=== PATIENT | female | born 1980 | race Caucasian/White ===

== ENCOUNTER 2016-07-02 12:05 | Emergency (ER) | payer OTHER ==
[~2016-07-02] VITALS: Ht 172.7 cm; Wt 99.8 kg
[2016-07-02 12:30] VITALS: BP 130/83
[2016-07-02] MEDS ORDERED: HYDR-971 PO (13:01)
[2016-07-02] MEDS ORDERED: AMOX500C PO (13:01)
--- NOTE | 2016-07-02 13:01 | PHYS DOC ---
Past Medical History Past Medical History: Other Additional Past Medical Histor: adhd Past Surgical History: Other Additional Past Surgical Histo: right facial injury repair Alcohol Use: None Drug Use: None Adult General Chief Complaint Chief Complaint: DENTAL PROBLEM HPI HPI Patient is a 35 year old female presents emergency department stating that she is having right upper dental pain as well as pain on the frontal part of her teeth. Patient denies any fever, chills or any nausea vomiting. She denies any foul taste in the mouth except for which she uses Orajel. Patient states she does not have a dentist. Review of Systems Review of Systems Constitutional: Denies fever or chills [] Eyes: Denies change in visual acuity, redness, or eye pain [] HENT: Denies nasal congestion or sore throat. C/o dental pain to the right upper back area and the lower fontal teeth Respiratory: Denies cough or shortness of breath [] Cardiovascular: No additional information not addressed in HPI [] GI: Denies abdominal pain, nausea, vomiting, bloody stools or diarrhea [] Musculoskeletal: Denies back pain or joint pain [] Integument: Denies rash or skin lesions [] Neurologic: Denies headache, focal weakness or sensory changes [] Allergies Allergies Allergies Coded Allergies Type Severity Reaction Last Updated Verified No Known Drug Allergies 01/19/14 No Physical Exam Physical Exam Constitutional: Well developed, well nourished, no acute distress, non-toxic appearance. [] HENT: Normocephalic, atraumatic, bilateral external ears normal, oropharynx moist, no oral exudates, nose normal. Bilateral tympanic membranes appear to be normal. Area in the frontal lower areas of the teeth appear to be very red with the #25 tooth appears to have recess gumlines. Patient was noted to have #30-32 teeth extracted. Areas around the #1 and number to teeth appear to be missing as well although this area appears to be very red with some white areas noted Eyes: PERRLA, EOMI, conjunctiva normal, no discharge. [] Neck: Normal range of motion, no tenderness, supple, no stridor. [] Cardiovascular:Heart rate regular rhythm, no murmur [] Lungs & Thorax: Bilateral breath sounds clear to auscultation [] Skin: Warm, dry, no erythema, no rash. [] Back: No tenderness Extremities: No tenderness, no cyanosis, no clubbing, ROM intact, no edema. [] Neurologic: Alert and oriented X 3, normal motor function, normal sensory function, no focal deficits noted. [] Psychologic: Affect normal, judgement normal, mood normal. [] Current Patient Data Vital Signs Vital Signs Date Time Temp Pulse Resp B/P Pulse Ox O2 Delivery O2 Flow Rate FiO2 07/02/16 12:30 98.2 82 18 95 Room Air 98.2 EKG EKG [] Radiology/Procedures Radiology/Procedures [] Course & Med Decision Making Course & Med Decision Making Pertinent Labs and Imaging studies reviewed. (See chart for details) Patient will be placed on amoxicillin. She'll also be provided with hydrocodone in which she was instructed will cause drowsiness do not take any be alert and oriented. Patient agrees with discharge instructions, treatment regimens and follow-up recommendations. She was provided with a dental list to help with follow-up. Also recommended for her to take ibuprofen 800 mg every 8 hours to help with inflammation. Patient will be discharged home in stable condition signs and symptoms to return back to emergency department has been provided. [] Dragon Disclaimer Dragon Disclaimer This electronic medical record was generated, in whole or in part, using a voice recognition dictation system. Departure Departure Impression: Primary Impression: Dental abscess Additional Impression: Pain, dental Disposition: 01 HOME, SELF-CARE Condition: STABLE Referrals: NO PCP (PCP) Patient Instructions: Dental Abscess, Dental Pain Additional Instructions: Activity as tolerated. Medication as prescribed. Hydrocodone will cause drowsiness do not take any be alert and oriented. Ibuprofen 800 mg every 8 hours. Warm salt water mouth rinses 4 times a day. Follow-up with the dentist within the next week. Return back to emergency department sent symptoms of become worse. Scripts Hydrocodone/Apap 5-325 ([place] 5-325 Tablet)1 Each Tablet1 Tab PO PRN Q6HRS PRN PAIN #10 TAB Prov:BLANKA ANDERS LARDER COOK 07/02/16 Amoxicillin 500 Mg Capsule1 Cap PO QID #40 CAP Prov:BLANKA ANDERS LARDER COOK 07/02/16 Problem Qualifiers BLANKA ANDERS NP Jul 02, 2016 13:01
[2016-07-02] MEDS ORDERED: HYDROCODONE/APAP 5/325MG TABLET. PO ONE (13:15)
== END 2016-07-02 13:17 | disposition home or self-care (01) ==
LOC: ER 12:09
DX: K04.7 Periapical abscess without sinus (principal); K08.89 Other specified disorders of teeth and supporting structures
CPT/HCPCS: 99283

== ENCOUNTER 2017-08-09 05:49 | Emergency (ER) | payer OTHER ==
[2017-08-09 06:10] LABS: URINE HCG POC HCG NEGATIVE (Negative)
[2017-08-09 06:22] LABS: ADD MAN DIFF? NO
[2017-08-09] MEDS: IV NORMAL SALINE 1000ML BAG 1,000 ML IV (06:27)
[2017-08-09] MEDS: fentaNYL PF VIAL 100 MCG/2 ML VIAL IV (06:28)
[2017-08-09] MEDS: ONDANSETRON PF 4 MG/2 ML VIAL. IV (06:29)
[2017-08-09] MEDS: LIDO:MAALOX:DONNATAL 1:1:1 15 ML SINGLE DOSE SWSW (06:30)
[2017-08-09] MEDS: KETOROLAC 30 MG/ML INJ. IV (06:30)
[2017-08-09 06:31] LABS: BASO % 0 % (0-3); EOS # 0.2 x10^3/uL (0.0-0.7); EOS % 1 % (0-3); HEMATOCRIT 42.9 % (36.0-47.0); HEMOGLOBIN 14.7 g/dL (12.0-15.5); LYMPH # 1.7 x10^3/uL (1.0-4.8); LYMPH % 15 % (24-48); MEAN CORPUSCULAR HEMOGLOBIN 31 pg (25-35); MEAN CORPUSCULAR HGB CONC 34 g/dL (31-37); MEAN CORPUSCULAR VOLUME 91 fL (79-100); MONO # 0.4 x10^3/uL (0.0-1.1); MONO % 4 % (0-9); NEUT # 9.3 x10^3uL (1.8-7.7); NEUT % 80 % (31-73); PLATELET COUNT 273 x10^3/uL (140-400); RED BLOOD COUNT 4.73 x10^6/uL (3.50-5.40); RED CELL DISTRIBUTION WIDTH 12.8 % (11.5-14.5); WHITE BLOOD COUNT 11.6 x10^3/uL (4.0-11.0)
[2017-08-09 06:46] LABS: BILIRUBIN,URINE NEGATIVE (NEG); CLARITY,URINE CLOUDY; COLOR,URINE YELLOW; GLUCOSE,URINE NEGATIVE (NEG); NITRITE,URINE NEGATIVE (NEG); PROTEIN,URINE NEGATIVE (NEG-TRACE); UROBILINOGEN,URINE 0.2 mg/dL (0.2 mg/dL)
[2017-08-09 07:03] LABS: ANION GAP 8 (6-14); BLOOD UREA NITROGEN 12 mg/dL (7-20); BUN/CREATININE RATIO 13 (6-20); CALCIUM 9.2 mg/dL (8.5-10.1); CARBON DIOXIDE 23 mmol/L (21-32); CHLORIDE 105 mmol/L (98-107); CREATININE 0.9 mg/dL (0.6-1.0); GFR 71.7; GLUCOSE 115 mg/dL (70-99); POTASSIUM 3.9 mmol/L (3.5-5.1); SODIUM 136 mmol/L (136-145)
[2017-08-09 07:07] LABS: BACTERIA,URINE MANY /HPF (0-FEW); RBC,URINE 0 /HPF (0-2); SQUAMOUS EPITHELIAL CELL,UR MANY /LPF; YEAST,URINE PRESENT /HPF
[2017-08-09 07:11] LABS: ALBUMIN 3.5 g/dL (3.4-5.0); ALBUMIN/GLOBULIN RATIO 0.9 (1.0-1.7); ALK PHOS 51 U/L (46-116); ALT (SGPT) 27 U/L (14-59); AST (SGOT) 16 U/L (15-37); LIPASE 120 U/L (73-393); TOTAL BILIRUBIN 0.5 mg/dL (0.2-1.0); TOTAL PROTEIN 7.2 g/dL (6.4-8.2)
[2017-08-09] MEDS: HYDROcodone/APAP 5/325MG 1 TAB TABLET PO (08:15)
[2017-08-09] MEDS: FAMOTIDINE 20 MG TABLET. PO (08:25)
== END 2017-08-09 08:43 | disposition home or self-care (01) ==
LOC: ER 05:49
DX: R10.12 Left upper quadrant pain (principal); D72.829 Elevated white blood cell count, unspecified; R00.1 Bradycardia, unspecified; R11.2 Nausea with vomiting, unspecified; F90.9 Attention-deficit hyperactivity disorder, unspecified type
CPT/HCPCS: 36415; 74176; 80053; 81001; 81025; 83690; 83735; 85025; 87086; 93005; 96361; 96374; 96375; 99285-25; J1885; J2405; J3010; J7030

== ENCOUNTER 2018-09-13 11:49 | Emergency (ER) | payer SELFPAY ==
[~2018-09-13] VITALS: Ht 172.7 cm; Wt 99.8 kg
[~2018-09-13 11:49] MED LIST: AMOX500C PO; HYDR-3164 PO; OMEP20TA63 PO; ONDA4TAB10 PO
[2018-09-13 12:22] LABS: BASO % 0 % (0-3); EOS # 0.1 x10^3/uL (0.0-0.7); EOS % 1 % (0-3); HEMATOCRIT 41.3 % (36.0-47.0); HEMOGLOBIN 13.7 g/dL (12.0-15.5); LYMPH # 1.8 x10^3/uL (1.0-4.8); LYMPH % 20 % (24-48); MEAN CORPUSCULAR HEMOGLOBIN 30 pg (25-35); MEAN CORPUSCULAR HGB CONC 33 g/dL (31-37); MEAN CORPUSCULAR VOLUME 91 fL (79-100); MONO # 0.3 x10^3/uL (0.0-1.1); MONO % 4 % (0-9); NEUT # 7.1 x10^3uL (1.8-7.7); NEUT % 76 % (31-73); PLATELET COUNT 244 x10^3/uL (140-400); RED BLOOD COUNT 4.52 x10^6/uL (3.50-5.40); RED CELL DISTRIBUTION WIDTH 13.5 % (11.5-14.5); WHITE BLOOD COUNT 9.4 x10^3/uL (4.0-11.0)
--- NOTE | 2018-09-13 12:24 | PHYS DOC ---
Past Medical History Past Medical History: Other Additional Past Medical Histor: adhd Past Surgical History: Tonsillectomy Additional Past Surgical Histo: right facial injury repair Alcohol Use: Occasionally Drug Use: None Adult General HPI HPI Patient is a 37 year old female presents to the ED complaining of right-sided chest pain and cough since last night. States she has been coughing on and off over the last week. Describes the pain as sharp. Rates the pain as 8 out of 10. States it is constant. Nothing makes it better or worse. Patient also states about 16 hours ago she started to develop some stuttering. Complains of pain to right sided chest. She has no past medical history significant to her symptoms today. Patients stuttering is broken and sometimes she speaks in full sentences when distracted. Associated symptoms include subjective fever and sore throat. No difficulty walking. Denies altered mental status, shortness of breath, lower leg swelling, dizziness, nausea/vomiting, abdominal pain, back pain, diarrhea, recent illness. Review of Systems Review of Systems Constitutional:Complains of subjective fever. Denies chills [] Eyes: Denies change in visual acuity, redness, or eye pain [] HENT: Complains of sore throat. Denies nasal congestion.[] Respiratory: Complains of cough. Denies shortness of breath [] Cardiovascular: No additional information not addressed in HPI [] GI: Denies abdominal pain, nausea, vomiting, bloody stools or diarrhea [] : Denies dysuria or hematuria [] Musculoskeletal: Denies back pain or joint pain [] Integument: Denies rash or skin lesions [] Neurologic: Complains of stuttering. Denies headache, focal weakness or sensory changes [] All other systems were reviewed and found to be within normal limits, except as documented in this note. Allergies Allergies Allergies Coded Allergies Type Severity Reaction Last Updated Verified No Known Drug Allergies 01/19/14 No Physical Exam Physical Exam Constitutional: Well developed, well nourished, no acute distress, non-toxic appearance. [] HENT: Normocephalic, atraumatic, bilateral external ears normal, oropharynx moist, no oral exudates, nose normal. [] Eyes: PERRLA, EOMI, conjunctiva normal, no discharge. [] Neck: Normal range of motion, no tenderness, supple, no stridor. [] Cardiovascular:Heart rate regular rhythm, no murmur [] Lungs & Thorax: Bilateral breath sounds clear to auscultation. Productive cough. [] Abdomen: Bowel sounds normal, soft, no tenderness, no masses, no pulsatile masses. [] Skin: Warm, dry, no erythema, no rash. [] Back: No tenderness, no CVA tenderness. [] Extremities: No tenderness, no cyanosis, no clubbing, ROM intact, no edema. [] Neurologic: Alert and oriented X 3, normal motor function, normal sensory function, no focal deficits noted. DTR's intact. Normal speech. Psychologic: Affect normal, judgement normal, mood normal. [] Current Patient Data Vital Signs Vital Signs Date Time Temp Pulse Resp B/P (MAP) Pulse Ox O2 Delivery O2 Flow Rate FiO2 09/13/18 13:00 68 119/61 (80) 98 Room Air 09/13/18 11:49 97.8 23 97.8 Lab Values Laboratory Tests Test 09/13/18 11:55 09/13/18 12:45 White Blood Count 9.4 x10^3/uL (4.0-11.0) Red Blood Count 4.52 x10^6/uL (3.50-5.40) Hemoglobin 13.7 g/dL (12.0-15.5) Hematocrit 41.3 % (36.0-47.0) Mean Corpuscular Volume 91 fL (79-100) Mean Corpuscular Hemoglobin 30 pg (25-35) Mean Corpuscular Hemoglobin Concent 33 g/dL (31-37) Red Cell Distribution Width 13.5 % (11.5-14.5) Platelet Count 244 x10^3/uL (140-400) Neutrophils (%) (Auto) 76 % (31-73) H Lymphocytes (%) (Auto) 20 % (24-48) L Monocytes (%) (Auto) 4 % (0-9) Eosinophils (%) (Auto) 1 % (0-3) Basophils (%) (Auto) 0 % (0-3) Neutrophils # (Auto) 7.1 x10^3uL (1.8-7.7) Lymphocytes # (Auto) 1.8 x10^3/uL (1.0-4.8) Monocytes # (Auto) 0.3 x10^3/uL (0.0-1.1) Eosinophils # (Auto) 0.1 x10^3/uL (0.0-0.7) Basophils # (Auto) 0.0 x10^3/uL (0.0-0.2) D-Dimer (Tanika) 0.40 ug/mlFEU (0.00-0.50) Sodium Level 143 mmol/L (136-145) Potassium Level 3.7 mmol/L (3.5-5.1) Chloride Level 106 mmol/L (98-107) Carbon Dioxide Level 28 mmol/L (21-32) Anion Gap 9 (6-14) Blood Urea Nitrogen 10 mg/dL (7-20) Creatinine 0.8 mg/dL (0.6-1.0) Estimated GFR (Cockcroft-Gault) 81.6 BUN/Creatinine Ratio 13 (6-20) Glucose Level 128 mg/dL (70-99) H Calcium Level 8.6 mg/dL (8.5-10.1) Magnesium Level 2.0 mg/dL (1.8-2.4) Total Bilirubin 0.6 mg/dL (0.2-1.0) Aspartate Amino Transferase (AST) 12 U/L (15-37) L Alanine Aminotransferase (ALT) 20 U/L (14-59) Alkaline Phosphatase 46 U/L (46-116) Troponin I Quantitative < 0.017 ng/mL (0.000-0.055) Total Protein 6.8 g/dL (6.4-8.2) Albumin 3.5 g/dL (3.4-5.0) Albumin/Globulin Ratio 1.1 (1.0-1.7) Ethyl Alcohol Level < 10 mg/dL (0-10) Urine Collection Type Void Urine Color Yellow Urine Clarity Clear Urine pH 5.5 Urine Specific [place] 1.010 Urine Protein Negative mg/dL (NEG-TRACE) Urine Glucose (UA) Negative mg/dL (NEG) Urine Ketones (Stick) Negative mg/dL (NEG) Urine Blood Moderate (NEG) Urine Nitrite Negative (NEG) Urine Bilirubin Negative (NEG) Urine Urobilinogen Dipstick 0.2 mg/dL (0.2 mg/dL) Urine Leukocyte Esterase Moderate (NEG) Urine RBC 1-2 /HPF (0-2) Urine WBC 11-20 /HPF (0-4) Urine Squamous Epithelial Cells Mod /LPF Urine Bacteria Moderate /HPF (0-FEW) Urine Mucus Mod /LPF POC Urine HCG, Qualitative Hcg negative (Negative) Urine Opiates Screen Neg (NEG) Urine Methadone Screen Neg (NEG) Urine Barbiturates Neg (NEG) Urine Phencyclidine Screen Neg (NEG) Urine Amphetamine/Methamphetamine Neg (NEG) Urine Benzodiazepines Screen Neg (NEG) Urine Cocaine Screen Neg (NEG) Urine Cannabinoids Screen Pos (NEG) Urine Ethyl Alcohol Neg (NEG) Laboratory Tests 09/13/18 11:55 Laboratory Tests 09/13/18 11:55 EKG EKG EKG shows NSR at 66 BPM. No Stemi.[] Radiology/Procedures Radiology/Procedures []PROCEDURE: CT HEAD WO CONTRAST CT HEAD WO CONTRAST History: Slurred speech for 16 hours, previous fall, dizziness Comparison: None. Technique: Noncontrast CT imaging was performed of the head. Exposure: One or more of the following individualized dose reduction techniques were utilized for this examination: 1. Automated exposure control 2. Adjustment of the mA and/or kV according to patient size 3. Use of iterative reconstruction technique. Findings: No acute extra-axial or parenchymal hemorrhage is identified. There is no significant intra-axial mass effect, midline shift, or extra-axial fluid collection. The wallace-white differentiation of the major vascular territories is preserved. The ventricles, sulci, and cisterns are within normal limits in size and configuration. The mastoid air cells and the visualized paranasal sinuses are aerated. No acute calvarial abnormality is identified. Impression: 1. No acute intracranial abnormality is identified. PROCEDURE: PORTABLE CHEST 1V PORTABLE CHEST 1V History: RIGHT SIDED CHEST PAIN Comparison: August 10, 2004 Findings: Single view of the chest is submitted. There is mild hazy opacity of the medial right base although the right hemidiaphragm and right heart border still visualized. There is no dependent pleural fluid or pneumothorax. Heart size is within normal limits given technique. Impression: 1. There is some hazy medial right base opacity, mild infiltrate or atelectasis difficult to exclude. Course & Med Decision Making Course & Med Decision Making Pertinent Labs and Imaging studies reviewed. (See chart for details) Discussed case with attending physician. Agrees with evaluation and plan. []Reviewed labs and imaging findings with patient. Patients imaging shows hazy opacity right lung which could be causing her right sided chest pain symptoms as well as productive cough. Negative d-dimer and negative troponin. UA seems contaminated. Patient has no cardiac risk factors. CT head imaging normal. Patient had mild stutter on initial exam which seems like patient is doing herself. Patient was able to ambulate to bed by herself. Patient speaking in full sentences to family at bedside. Discussed symptomatic treatment, hydration and [id number] medications. Will prescribe zpak outpatient. Discussed follow-up with PCP tomorrow. Provided contact information/education. Discussed reasons to return to the ED. Patient understands and agrees with plan. Dragon Disclaimer Dragon Disclaimer This electronic medical record was generated, in whole or in part, using a voice recognition dictation system. Departure Departure Impression: Primary Impression: Lung infiltrate Additional Impression: Idiopathic stuttering Disposition: 01 HOME, SELF-CARE Condition: IMPROVED Referrals: NO PCP (PCP) CARLYLE SIMS MD Patient Instructions: Pneumonia, Adult Scripts Azithromycin (AZITHROMYCIN PACKET) 1 Gm Packet 1 PACKET PO ONCE, #1 PACKET Prov: TAD MILLIGAN 09/13/18 Problem Qualifiers TAD MILLIGAN Sep 13, 2018 12:23
[2018-09-13 12:37] LABS: CALCIUM 8.6 mg/dL (8.5-10.1); CREATININE 0.8 mg/dL (0.6-1.0); GFR 81.6; POTASSIUM 3.7 mmol/L (3.5-5.1)
[2018-09-13 12:45] LABS: ALBUMIN 3.5 g/dL (3.4-5.0); ALBUMIN/GLOBULIN RATIO 1.1 (1.0-1.7); TOTAL BILIRUBIN 0.6 mg/dL (0.2-1.0); TOTAL PROTEIN 6.8 g/dL (6.4-8.2)
--- NOTE | 2018-09-13 12:48 | RAD ---
PORTABLE CHEST 1V History: RIGHT SIDED CHEST PAIN Comparison: August 10, 2004 Findings: Single view of the chest is submitted. There is mild hazy opacity of the medial right base although the right hemidiaphragm and right heart border still visualized. There is no dependent pleural fluid or pneumothorax. Heart size is within normal limits given technique. Impression: 1. There is some hazy medial right base opacity, mild infiltrate or atelectasis difficult to exclude. Electronically signed by: Naveen Mcclure MD (09/13/2018 12:46 PM) [place] [id number]
[2018-09-13 12:58] LABS: BILIRUBIN,URINE NEGATIVE (NEG); CLARITY,URINE CLEAR; COLOR,URINE YELLOW; NITRITE,URINE NEGATIVE (NEG); PH,URINE 5.5; PROTEIN,URINE NEGATIVE (NEG-TRACE); UROBILINOGEN,URINE 0.2 mg/dL (0.2 mg/dL)
[2018-09-13 13:00] VITALS: BP 119/61
[2018-09-13 13:03] LABS: BACTERIA,URINE MODERATE /HPF (0-FEW); SQUAMOUS EPITHELIAL CELL,UR MOD /LPF
[2018-09-13 13:05] LABS: BARBITURATES NEG (NEG); BENZODIAZEPINES NEG (NEG); CANNABINOIDS POS (NEG); COCAINE NEG (NEG); METHADONE NEG (NEG); OPIATES NEG (NEG); PHENCYCLIDINE NEG (NEG)
[2018-09-13 13:08] LABS: AMPHETAMINE/METHAMPHETAMINE NEG (NEG)
--- NOTE | 2018-09-13 13:25 | RAD ---
CT HEAD WO CONTRAST History: Slurred speech for 16 hours, previous fall, dizziness Comparison: None. Technique: Noncontrast CT imaging was performed of the head. Exposure: One or more of the following individualized dose reduction techniques were utilized for this examination: 1. Automated exposure control 2. Adjustment of the mA and/or kV according to patient size 3. Use of iterative reconstruction technique. Findings: No acute extra-axial or parenchymal hemorrhage is identified. There is no significant intra-axial mass effect, midline shift, or extra-axial fluid collection. The wallace-white differentiation of the major vascular territories is preserved. The ventricles, sulci, and cisterns are within normal limits in size and configuration. The mastoid air cells and the visualized paranasal sinuses are aerated. No acute calvarial abnormality is identified. Impression: 1. No acute intracranial abnormality is identified. Electronically signed by: Naveen Mcclure MD (09/13/2018 1:22 PM) [email or web address]
[2018-09-13] MEDS ORDERED: AZIT1PAC9 PO (14:16)
--- NOTE | 2018-09-13 14:40 | EKG ---
[facility] [address] [place] [address] Test Date: 2018-09-13 Test Time: 12:18:01 Pat Name: POPEYE LEIGH Department: Room: Gender: F [employer]er: [place] : 1980 Requested By: TAD MILLIGAN Order Number: [id number] Reading MD: Vin Gaston MD Measurements Intervals [place] Rate: 65 P: 36 TN: 134 QRS: 8 QRSD: 82 T: 11 QT: 384 QTc: 404 Interpretive Statements SINUS RHYTHM NON-SPECIFIC ST/T CHANGES Electronically Signed On 09-13-2018 15:44:59 CDT by Vin Gaston MD
== END 2018-09-13 15:18 | disposition home or self-care (01) ==
LOC: ER 11:49
DX: R91.8 Other nonspecific abnormal finding of lung field (principal); F80.81 Childhood onset fluency disorder; R50.9 Fever, unspecified; R42 Dizziness and giddiness; J02.9 Acute pharyngitis, unspecified; Z90.89 Acquired absence of other organs
CPT/HCPCS: 36415; 70450; 71045; 80053; 80307; 81001; 81025; 83735; 84484; 85025; 85379; 87086; 93005; 99284; G0480

== ENCOUNTER 2018-12-23 12:24 | Emergency (ER) | payer OTHER ==
[~2018-12-23] VITALS: Ht 172.7 cm; Wt 99.8 kg
[~2018-12-23 12:24] MED LIST changes: +AZIT1PAC9 PO
[2018-12-23 12:49] VITALS: BP 119/61
--- NOTE | 2018-12-23 13:26 | RAD ---
Examination: 3 views of the left ankle and left foot HISTORY: History of fall, pain, bruising COMPARISON: None available Findings/ impression: The alignment of the ankle mortise grossly appears unremarkable. Small subchondral cystic changes identified in the distal navicular bone probably degeneration. There is moderate soft tissue swelling identified in the dorsum of the midfoot dorsal to the metatarsals. Given the amount of soft tissue swelling underlying fracture particularly at the bases of the second and third metatarsals is not completely excluded , recommend CT foot for further evaluation. Electronically signed by: Conrado Underwood MD (12/23/2018 1:23 PM) [id number]
[2018-12-23] MEDS ORDERED: HYDROcodone/APAP 5/325MG 1 TAB TABLET PO ONE (13:30)
--- NOTE | 2018-12-23 15:12 | RAD ---
CT study of the left foot without contrast Clinical indications: Left foot injury and pain. TECHNIQUE: Noncontrast helical CT scanning of the left foot was performed. Multiplanar 2-D reconstructions were generated. PQRS compliance Statement One or more of the following individualized dose reduction techniques were utilized for this study: 1. Automated exposure control 2. Adjustment of the mA and/or kV according to patient size 3. Use of iterative reconstruction technique FINDINGS: No acute fracture is evident. No dislocation is evident. The first and second cuneiform bones and the first and second metatarsal bones are well aligned and therefore there is no finding of a Lisfranc injury. There is moderate degenerative cystic change and joint space narrowing of the navicular cuneiform joints involving all 3 cuneiform bones. No subluxation is seen here. There is a small dorsal loose body of the joint space between the navicular bone and first cuneiform bone which measures 3 mm. No periosteal reaction is seen. Dorsal subcutaneous soft tissue edema is seen. The Achilles tendon is intact. There is a plantar spur of the calcaneus. IMPRESSION: No acute fracture. 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 This could be due to overuse or previous old trauma or early diabetic neuroarthropathy if there is a clinical history of such. Dorsal soft tissue edema. No radiopaque foreign body is evident.In addition, there is soft tissue edema of the plantar aspect of the foot just superficial to the medial and lateral sesamoid bones of the first metatarsal phalangeal joint region. Plantar spur of the calcaneus. Electronically signed by: Joey Alas MD (12/23/2018 3:09 PM) [place] [id number]
[2018-12-23] MEDS ORDERED: NAPR-514 PO (15:29)
--- NOTE | 2018-12-23 15:29 | PHYS DOC ---
Past Medical History Past Medical History: Other Additional Past Medical Histor: adhd Past Surgical History: Tonsillectomy Additional Past Surgical Histo: right facial injury repair, Alcohol Use: Occasionally Drug Use: None Adult General Chief Complaint Chief Complaint: LOWEREXTREMITY INJURY HPI HPI Patient is a 38 year old female, accompanied by her mother with complaints of foot and ankle swelling and pain after rolling her ankle on 12/09/18. Pt was seen at [facility] and dx with a sprain after the initial injury. She states she has been keeping the splint on that was provided to her by that facility and has been elevating her leg but the pain and swelling persist. Currently, she rates her pain a 10/10 on the pain scale, there are no alleviating factors the pain increases with movement or palpation. She has been taking tylenol and ibuprofen with no relief of her sx. Review of Systems Review of Systems Constitutional: Denies fever or chills [] Musculoskeletal: see HPI Integument: Denies rash or skin lesions; reports swelling of LLE [] Neurologic: Denies headache, focal weakness or sensory changes [] Current Medications Current Medications Current Medications Medications (Trade) Dose Ordered Sig/Teresa Start Time Stop Time Status Last Admin Dose Admin Acetaminophen/ Hydrocodone Bitart (Lortab 5/325) 1 tab 1X ONCE 12/23/18 13:30 12/23/18 13:31 DC 12/23/18 13:29 1 TAB Allergies Allergies Allergies Coded Allergies Type Severity Reaction Last Updated Verified No Known Drug Allergies 01/19/14 No Physical Exam Physical Exam Constitutional: Well developed, well nourished, no acute distress, non-toxic appearance. [] HENT: Normocephalic, atraumatic, bilateral external ears normal, nose normal. [] Eyes: conjunctiva normal, no discharge. [] Neck: Normal range of motion, no stridor. [] Cardiovascular:Heart rate regular rhythm Lungs & Thorax: Respirations even and unlabored, no retractions, no respiratory distress Skin: Warm, dry, no erythema, no rash. [] Extremities: No cyanosis; diffuse TTP of left ankle and left foot, 3+ edema noted, no erythema or warmth, limited ROM of L foot and L ankle due to pain, no obvious deformity noted Neurologic: Alert and oriented X 3, no focal deficits noted. [] Psychologic: Affect normal, judgement normal, mood normal. [] Current Patient Data Vital Signs Vital Signs Date Time Temp Pulse Resp B/P (MAP) Pulse Ox O2 Delivery O2 Flow Rate FiO2 12/23/18 12:49 98.0 82 22 119/61 (80) 99 Room Air 98.0 EKG EKG [] Radiology/Procedures Radiology/Procedures PROCEDURE: ANKLE LEFT 3V Examination: 3 views of the left ankle and left foot HISTORY: History of fall, pain, bruising COMPARISON: None available Findings/ impression: The alignment of the ankle mortise grossly appears unremarkable. Small subchondral cystic changes identified in the distal navicular bone probably degeneration. There is moderate soft tissue swelling identified in the dorsum of the midfoot dorsal to the metatarsals. Given the amount of soft tissue swelling underlying fracture particularly at the bases of the second and third metatarsals is not completely excluded , recommend CT foot for further evaluation. PROCEDURE: CT LOWER EXTREMITY WO LEFT CT study of the left foot without contrast Clinical indications: Left foot injury and pain. TECHNIQUE: Noncontrast helical CT scanning of the left foot was performed. Multiplanar 2-D reconstructions were generated. PQRS compliance Statement One or more of the following individualized dose reduction techniques were utilized for this study: 1. Automated exposure control 2. Adjustment of the mA and/or kV according to patient size 3. Use of iterative reconstruction technique FINDINGS: No acute fracture is evident. No dislocation is evident. The first and second cuneiform bones and the first and second metatarsal bones are well aligned and therefore there is no finding of a Lisfranc injury. There is moderate degenerative cystic change and joint space narrowing of the navicular cuneiform joints involving all 3 cuneiform bones. No subluxation is seen here. There is a small dorsal loose body of the joint space between the navicular bone and first cuneiform bone which measures 3 mm. No periosteal reaction is seen. Dorsal subcutaneous soft tissue edema is seen. The Achilles tendon is intact. There is a plantar spur of the calcaneus. IMPRESSION: No acute fracture. 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 This could be due to overuse or previous old trauma or early diabetic neuroarthropathy if there is a clinical history of such. Dorsal soft tissue edema. No radiopaque foreign body is evident.In addition, there is soft tissue edema of the plantar aspect of the foot just superficial to the medial and lateral sesamoid bones of the first metatarsal phalangeal joint region. Plantar spur of the calcaneus. [] Course & Med Decision Making Course & Med Decision Making Pertinent Labs and Imaging studies reviewed. (See chart for details) dx: left foot pain, swelling of left foot, left ankle pain CT of LLE revealed no acute findings or fracture Pt was placed in an cyndi wrap and encouraged to continue wearing ankle air cast that she came in with. Provided Dr. Matute's information for follow up One hydrocodone was given in the ER, prescription written for naproxen BID Recommend rest, ice, elevation, and activity as tolerated. Patient verbalized an understanding of home care, medications, follow-up, and return to ED instructions and was in agreement with the plan of care. [] Dragon Disclaimer Dragon Disclaimer This electronic medical record was generated, in whole or in part, using a voice recognition dictation system. Departure Departure Impression: Primary Impression: Left foot pain Additional Impressions: Swelling of left foot Left ankle pain Disposition: 01 HOME, SELF-CARE Condition: STABLE Referrals: NICOLASA MATUTE MD Patient Instructions: Foot Sprain-Brief Additional Instructions: Fill prescription and take as directed for pain. ICE, ELEVATE, and wear the cyndi wrap that was provided. Follow up with Dr. Matute if symptoms persist, return to the ER if symptoms worsen. Scripts Naproxen (NAPROXEN) 500 Mg Tablet 1 TAB PO BID for 10 Days, #20 TAB 0 Refills Prov: GENOVEVA MILLER [employer] 12/23/18 Problem Qualifiers Additional Impressions: Left ankle pain Chronicity: acute Qualified Codes: M25.572 - Pain in left ankle and joints of left foot GENOVEVA MILLER [employer] Dec 23, 2018 15:29
== END 2018-12-23 15:52 | disposition home or self-care (01) ==
LOC: ER 12:24
DX: M79.89 Other specified soft tissue disorders (principal); M25.572 Pain in left ankle and joints of left foot; Z90.89 Acquired absence of other organs
CPT/HCPCS: 73610; 73630; 73700; 99284; L4350

== ENCOUNTER 2021-06-03 19:25 | Emergency (ER) | payer OTHER ==
[~2021-06-03 19:25] MED LIST changes: +NAPR-514 PO
== END 2021-06-04 02:08 | disposition left against medical advice (07) ==
LOC: ER 19:25
DX: R07.89 Other chest pain (principal); Z53.21 Procedure and treatment not carried out due to patient leaving prior to being seen by health care provider